=== PATIENT | male | born 1975 | race Caucasian/White ===

== ENCOUNTER 2016-07-16 17:22 | Emergency (ER) | payer MEDICAID | END 2016-07-16 21:35 | disposition other institution (70) | LOC: D.ER 17:22 | DX: S02.82XA Fracture of other specified skull and facial bones, left side, initial encounter for closed fracture (principal); S12.9XXA Fracture of neck, unspecified, initial encounter; X58.XXXA Exposure to other specified factors, initial encounter; Y93.55 Activity, bike riding; Y92.488 Other paved roadways as the place of occurrence of the external cause; S12.100A Unspecified displaced fracture of second cervical vertebra, initial encounter for closed fracture; S22.039A Unspecified fracture of third thoracic vertebra, initial encounter for closed fracture; F17.200 Nicotine dependence, unspecified, uncomplicated ==

== ENCOUNTER 2017-04-10 21:40 | Emergency (ER) | payer MEDICAID | END 2017-04-10 23:27 | disposition home or self-care (01) | LOC: D.ER 21:40 | DX: L20.9 Atopic dermatitis, unspecified (principal) ==